=== PATIENT | male | born 1960 | race Caucasian/White ===

== ENCOUNTER 2020-07-08 13:08 | Outpatient (CLI) | payer OTHER ==
[2020-07-08 14:08] VITALS: BP 122/77
--- NOTE | 2020-07-08 14:08 | SLEEP CARE CONSULTATION ---
Information from patient questionnaire entered by Kathy Gomez. I have reviewed and concur with the information entered by Kathy Gomez. This document represents the service I personally performed and the decisions made by me, Katie Harkins ARNP. History of Present Illness Service Date and Time: 07/08/2020 1308 Reason for Visit: New patient Chief Complaint: reports: Other (Establish care) Date of Onset: 05/2010 Usual bedtime: 10 PM Time it takes to fall asleep: Average 2o minutes Snores at night: No Observed to quit breathing while asleep: No Sleeps alone due to snoring: No Reasons for waking at night: reports: Bathroom Toss, Turn, or Twitch while sleeping: No Recalls having dreams: Yes Usually gets out of bed at: 7 AM Feels refreshed in the morning: Yes Morning headache: No Sleepy or fatigued during the day: No Ever fallen asleep while driving: No Takes day naps: No Dreams during day naps: No Prior sleep studies: Yes Year and Where: [facility]) 2010 Additional HPI information: YOHANA JUDD was diagnosed to have extremely severe, AHI 100.5, obstructive sleep apnea-hypopnea syndrome and comes in today to establish care for CPAP therapy. - Parasomnia Symptoms Ever been unable to move upon waking from sleep: No Walks in sleep: No Talks in sleep: No Ever acted out dreams in sleep: No Ever felt weak in the knees when startled or emotional: No Bothered by creepy, crawly, restless sensations in legs: No Problems with memory or concentration: No CPAP Compliance Data - Data Reviewed with Patient Average duration of nightly device use: 7 h 38 min Compliance rate %: 93 Current pressure setting (cmH2O): 12-15 Average residual AHI: 1.7 On Oxygen: No Compliance data discussion: He has been using a CPAP machine for about 10 years. He has just received a referral to use [facility] for his supplies. He is using a [employer]Med Mirage Quattro size small. He has a backup mask. He last changed his cushion about 3 weeks ago. Subjective Missed days of use due to: reports: travel (using his travel machine) Patient concerns: denies: aerophagia, mask discomfort, air blowing in eyes, mask leak noise, condensation in mask/hose, nasal congestion, dry mouth, nose, throat, epistaxis, other Observed to snore while using device: No Current pressure setting perceived as: comfortable On therapy, patient: reports: sleeping better, awakening more refreshed, being more awake and alert during the day, more rested overall. denies: drowsiness while driving Initial [place] Sleepiness Scale score: 2 (in 2020) Past Medical History Past Medical History: reports: Hypertension, Dysphagia, Diabetes, Hypothyroidism Social History The patient's occupation is a RETIRED. Patient is and lives in [place]. Have you smoked in the past 12 months: No Alcohol use: Yes Alcohol amount and frequency: seldom Caffeine use: Yes Caffeine amount and frequency: 24 oz daily Pepsi Family History Family history of sleep disordered breathing: Yes (Not sure) Family Hx Sleep Apnea: Mother: Snoring, Sibling: Snoring Allergies and Home Medications Drug allergies reviewed: Yes (amoxicillin, singulair) Home medication list reviewed: Yes Allergy and home medication list: Atenolol Simvastatin Metformin Levothyroxine Vitamin D3 Vitamin B12 Fanny, as needed Nexium, as needed Review of Systems Cardiovascular: reports: high blood pressure Gastrointestinal: reports: heartburn (intermittent), difficulty swallowing (intermittent) Urinary: reports: frequency Neurological: denies: headaches Psychiatric: denies: Attention Deficit Hyperactivity, anxiety, depression Ear/Nose/Throat: reports: wisdom teeth removed. denies: tonsillectomy Musculoskeletal: reports: back pain (L6p) Immunologic: reports: sneezing (runny nose), allergies to food or environment (seasonal allergies) Physical Exam Blood Pressure: 122/77 Cuff size: wrist Heart Rate: 59 O2 Saturation: 97 Height: 5 ft 6 in Weight: 197 lb Body Mass Index: 31.8 BMI Classification: Obese Impression and Plan 1. Obstructive Sleep Apnea-Hypopnea Syndrome, extremely severe, with good treatment compliance and good apnea control. On CPAP therapy, the patient has better sleep quality and is more rested overall. He was originally diagnosed with extremely severe sleep apnea in 2010 and has been using CPAP since that time. He does have an older machine that he uses when he goes on vacation. He has significant improvement of his sleep apnea and is very satisfied with his treatment. Patient's apnea severity and rationale for treatment to reduce apnea, improve sleep quality and reduce cardiovascular and cerebrovascular events was reviewed. I also reviewed the benefit of consistent device use of CPAP for hypertension and diabetes. * Continue autoCPAP pressure at 12-15 cmH2O * Update supplies * Notify me if snoring with mask or feeling that the pressure is too much or too little * Attempt to lose weight * Call this office if any problems using CPAP * Return for follow up in 1 year, or sooner if concerns arise Counseling Topics: Spare mask, Weight loss health impact Visit Type: In Office Time Spent with Patient (minutes): 30 Provider Statement: I spent 100% of the Face to Face Visit with the patient with greater than 50% spent counseling the patient and coordination of care.
== END 2020-07-08 13:09 | disposition home or self-care (01) ==
LOC: SC 13:08
PROVIDERS: ATTEND Nurse Practitioner Family
DX: G47.33 Obstructive sleep apnea (adult) (pediatric) (principal); E66.9 Obesity, unspecified; Z68.31 Body mass index [BMI] 31.0-31.9, adult
CPT/HCPCS: 99203; 99212

== ENCOUNTER 2021-10-02 08:54 | Outpatient (CLI) | payer OTHER ==
--- NOTE | 2021-10-02 09:31 | SLEEP CARE CONSULTATION ---
Information from patient questionnaire entered by Evelyn Hu MA. I have reviewed and concur with the information entered by Evelyn Hu MA. This document represents the service I personally performed and the decisions made by , Katie Harkins ARNP. History of Present Illness Service Date and Time: 10/02/2021 0854 Previous diagnosis: Extremely Severe, Obstructive Sleep Apnea-Hypopnea Syndrome AHI: 100.5 (in 07/2018) Reason for follow up: annual (LAST SEEN06/2020, NEEDS SUPPLIES, RESMED, GREER 06/19/2018, ) Equipment type: CPAP Equipment obtained from: Other ([facility]; getting supplies as needed) Mask style: Full face (Mirage Quattro, size small) Backup mask available: Yes (old mask) Last cushion change: 3 weeks Prior sleep studies: Yes Year and Where: [place] ([facility]) 2010 HPI additional information: YOHANA JUDD was diagnosed to have extremely severe, AHI 100.5, obstructive sleep apnea-hypopnea syndrome and returned today for CPAP therapy annual follow-up. Sleep Study - Results Prior sleep studies: Yes Year and Where: [facility]) 2010 CPAP Compliance Data - Data Reviewed with Patient Average duration of nightly device use: 7 HOURS 10 MINUTES Compliance rate %: 98 (07/03/21-09/30/21; 88/90 days) Current pressure setting (cmH2O): 12-15 Average residual AHI: 1.9 Central apnea: .3 Obstructive apnea: 1.0 Hypopnea: .5 Average large leak: .0 Subjective Missed days of use due to: reports: travel (for vacation, used older machine when gone) Patient concerns: denies: aerophagia, mask discomfort, air blowing in eyes, mask leak noise, condensation in mask/hose, nasal congestion, dry mouth, nose, throat, epistaxis, other Observed to snore while using device: No Current pressure setting perceived as: comfortable On therapy, patient: reports: sleeping better, awakening more refreshed, being more awake and alert during the day, more rested overall. denies: drowsiness while driving Initial [place] Sleepiness Scale score: 2 (in 2020) Current [place] Sleepiness Scale score: 3 (10/02/21) Allergies and Home Medications Known drug allergies: Yes (SINGULAR, AMOXILLAN) Home medication list reviewed: Yes (no changes) Review of Systems Review of systems same as previous: Yes (no changes) Physical Exam Vital signs obtained and entered by: ABBEY NDIAYE Blood Pressure: 131/83 (RESP 18, PULSE 64, LEFT) Cuff size: wrist Heart Rate: 64 O2 Saturation: 97 (CLOTHE MASK) Height: 5 ft 6 in Weight: 194 lb Weight change since last visit: LOST 8 LBS HEALTHY DIET, Body Mass Index: 31.3 BMI Classification: Obese Impression and Plan 1. Obstructive Sleep Apnea-Hypopnea Syndrome, extremely severe, with good treatment compliance and good apnea control. On CPAP therapy, the patient has better sleep quality and is more rested overall. Patient has significant improvement of his sleep apnea and is happy with current pressure therapy. Pat ient asking for update of his supply prescription so that he can continue to receive his supplies from his DME. Patient denies problems with oral dryness, nasal congestion, epistaxis, skin irritation or aerophagia. Patient's apnea severity and rationale for treatment to reduce apnea, improve sleep quality and reduce cardiovascular and cerebrovascular events was reviewed. I also reviewed the benefit of consistent device use of CPAP for hypertension and diabetes. 2. Obesity, unspecified. Patient has lost weight. Currently patients BMI is 31.3. Obesity increases the risk of apnea, CPAP pressure requirements and overall health risks especially cardiovascular and diabetes. Thus patient is advised to continue to try to lose weight. Weight loss can be done with reducing portion size, reducing refined foods and balancing content with vegetables, fruit and whole grain foods. In addition, patient encouraged to get regular exercise. The patient's CPAP pressure range should accommodate some weight loss. Symptoms to report for additional pressure adjustment discussed. * Continue auto CPAP pressure at 12-15 cmH2O * Update supplies * Notify me if snoring with mask or feeling that the pressure is too much or too little * Attempt to lose weight * Call this office if any problems using CPAP * Return for follow up in 1 year, or sooner if concerns arise Counseling Topics: Spare mask, Weight loss health impact Visit Type: In Office Time Spent with Patient (minutes): 20 Provider Statement: I spent 100% of the Face to Face Visit with the patient with greater than 50% spent counseling the patient and coordination of care.
[2021-10-02 09:32] VITALS: BP 131/83
== END 2021-10-02 08:55 | disposition home or self-care (01) ==
LOC: SC 08:54
PROVIDERS: ATTEND Nurse Practitioner Family
DX: G47.33 Obstructive sleep apnea (adult) (pediatric) (principal); E66.9 Obesity, unspecified; Z68.31 Body mass index [BMI] 31.0-31.9, adult
CPT/HCPCS: 99212; 99213

== ENCOUNTER 2023-10-04 09:07 | Outpatient (CLI) | payer OTHER ==
--- NOTE | 2023-10-04 09:35 | Sleep Patient Instructions ---
Sleep Center Visit Summary - Patient Visit Information Reason for Visit: Annual follow-up - Patient Instructions Additional Instructions: You will continue with CPAP therapy with pressure changed to 12-16 cmH2O. A supply prescription will be updated with your DME. I have added an order to update your PAP machine. Please call the office to schedule a compliance follow up once you get your new device. We encourage you to continue to try to lose weight. Please follow up with the sleep care office one month after obtaining new device. - Clinic Information Contact: [facility] [address] [place] [address] [email or web address] T: [phone]
--- NOTE | 2023-10-04 09:41 | SLEEP CARE CONSULTATION ---
Information from patient questionnaire entered by Casandra Rasmussen. I have reviewed and concur with the information entered by Casandra Rasmussen. This document represents the service I personally performed and the decisions made by me, Katie Harkins ARNP. History of Present Illness Service Date and Time: 10/04/2023 0907 Previous diagnosis: Extremely Severe, Obstructive Sleep Apnea-Hypopnea Syndrome AHI: 100.5 (in 07/2018) Reason for follow up: annual (last seen 09/2022) Equipment type: CPAP (RESMED Airsense 10; s/u 06/2018 NEED MACHINE) Equipment obtained from: Other ([facility]; getting supplies as needed) Mask style: Full face (Mirage Quattro, size small) Backup mask available: Yes (old mask) Last cushion change: 3+ weeks Prior sleep studies: Yes Year and Where: [place] ([facility]) 2010 HPI additional information: YOHANA JUDD was diagnosed to have extremely severe, AHI 100.5, obstructive sleep apnea-hypopnea syndrome and returned today for CPAP therapy annual follow-up. Sleep Study - Results Prior sleep studies: Yes Year and Where: [place] ([facility]) 2010 CPAP Compliance Data - Data Reviewed with Patient Average duration of nightly device use: 7 HRS 15 MINS Compliance rate %: 92 (10/04/22-10/03/23; 342/365 days used) Current pressure setting (cmH2O): 12-15 (avg 14.6, max 14.9) Average residual AHI: 4.1 Central apnea: 0.9 Obstructive apnea: 2.3 Hypopnea: 0.9 Average large leak: 0.1 L/min Subjective Missed days of use due to: reports: travel (uses older CPAP on trips) Patient concerns: reports: condensation in mask/hose. denies: aerophagia, mask discomfort, air blowing in eyes, mask leak noise, nasal congestion, dry mouth, nose, throat, epistaxis Observed to snore while using device: Yes (occasional according to ) Current pressure setting perceived as: comfortable On therapy, patient: reports: sleeping better, awakening more refreshed, being more awake and alert during the day, more rested overall. denies: drowsiness while driving Initial [place] Sleepiness Scale score: 2 (in 2020) Current [place] Sleepiness Scale score: 2 (10/04/23) Allergies and Home Medications Known drug allergies: No Drug allergies reviewed: Yes Home medication list reviewed: Yes (no changes) Review of Systems Review of systems same as previous: Yes (no changes) Physical Exam Vital signs obtained and entered by: CASANDRA Pittman MA Blood Pressure: 127/73 (RIGHT ARM) Cuff size: regular Heart Rate: 52 O2 Saturation: 100 Height: 5 ft 6 in Weight: 166 lb 9.6 oz Weight change since last visit: 4 lb loss Body Mass Index: 26.9 BMI Classification: Overweight Impression and Plan 1. Obstructive Sleep Apnea-Hypopnea Syndrome, extremely severe, with good treatment compliance and good apnea control. On CPAP therapy, the patient has better sleep quality and is more rested overall. His Airsense 10 was last updated in 06/2018. The patients CPAP is over 5 years old and of reasonable use. Thus, the CPAP will be updated. A DWO prescription will be made. Compliance guidelines for new device and follow up discussed. Patient's apnea severity and rationale for treatment to reduce apnea, improve sleep quality and reduce cardiovascular and cerebrovascular events was reviewed. I also reviewed the benefit of consistent device use of CPAP for hypertension and diabetes. 2. Overweight, unspecified. Currently patients BMI is 26.9. Obesity increases the risk of apnea, CPAP pressure requirements and overall health risks especially cardiovascular and diabetes. Thus patient is advised to lose weight. * Change auto CPAP pressure to 12-16 cmH2O * Update supply prescription. * Notify me if snoring with mask or feeling that the pressure is too much or too little * Attempt to lose weight * Call this office if any problems using CPAP * Return for follow up in 12 months, or sooner if concerns arise Prescriptions: Auto CPAP, Device supplies Plan: replacement device and compliance follow up Visit Type: In Office Time Spent with Patient (minutes): 23 Provider Statement: I spent 100% of the Face to Face Visit with the patient with greater than 50% spent counseling the patient and coordination of care.
[2023-10-04 09:46] VITALS: BP 127/73; O2SAT 100
== END 2023-10-04 09:08 | disposition home or self-care (01) ==
LOC: SC 09:07
PROVIDERS: ATTEND Nurse Practitioner Family
DX: G47.33 Obstructive sleep apnea (adult) (pediatric) (principal); E66.3 Overweight; Z68.26 Body mass index [BMI] 26.0-26.9, adult
CPT/HCPCS: 99212; 99213